=== PATIENT | female | born 1950 | race Caucasian/White ===

== ENCOUNTER 2016-08-29 11:55 | Emergency (ER) | payer OTHER ==
[2016-08-29 12:04] VITALS: BP 123/72; PULSE 66; TEMP 98; BMI 33.6
== END 2016-08-29 14:51 | disposition left against medical advice (07) ==
LOC: JERFT 11:55
DX: Z53.21 Procedure and treatment not carried out due to patient leaving prior to being seen by health care provider (principal)
CPT/HCPCS: 99281-25